=== PATIENT | male | born 2000 | race American Indian/Alaskan Native ===

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

== ENCOUNTER 2021-09-11 12:42 | Emergency (ER) | payer OTHER ==
[2021-09-11 13:13] VITALS: BP 130/61; PULSE 96; TEMP 98; BMI 25.7
[2021-09-11] MEDS ORDERED: IBUPROFEN 600 MG TABLET (FP) PO ONE ×2 (14:01→14:19)
== END 2021-09-11 14:52 | disposition home or self-care (01) ==
LOC: JERFT 12:42 → JER 12:42 → JERFT 14:52
DX: M79.641 Pain in right hand (principal)
CPT/HCPCS: 73130-TC-RT-FY; 99283-25